=== PATIENT | male | born 1975 ===

== ENCOUNTER 2021-12-27 12:40 | Outpatient (CLI) | payer OTHER ==
--- NOTE | 2021-12-27 15:34 | MRI Report ---
PROCEDURE: Knee RT W/O INDICATIONS: KNEE PAIN TECHNIQUE: Noncontrast sagittal PD fast spin echo and T2 fast spin echo with fat saturation, sagittal 3-D gradie nt sequence with fat saturation; coronal T1 spin echo and PD fast spin echo with fat saturation, and axial PD fast spin echo with fat saturation through the knee. COMPARISON: None. FINDINGS: Image quality: Excellent. Menisci: The medial and lateral menisci demonstrate normal morphology and internal signal. The meni scal root ligaments appear intact. Cruciate ligaments: Sprain/low-grade intrasubstance partial thickness tear involving anterior cruciat e ligament is seen. No ACL rupture. PCL is intact. Medial structures: The medial collateral ligament appears intact. The posterior oblique ligament, s emimembranosus tendon insertions, and oblique popliteal ligament, and meniscocapsular junction appear intact. Visualized portions of the pes anserinus tendons appear normal. No abnormal bursal fluid. Lateral structures: The lateral collateral ligament, long and short heads of the biceps femoris tend on appear intact. The popliteus tendon appears normal; the popliteofibular ligament appears intact. Iliotibial band appears normal. Anterior structures: The quadriceps and patellar tendons appear intact. Patellar alignment is thanh l. No femoral trochlear dysplasia or ventral trochlear prominence. No edema in the infrapatellar fa t pad. 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 No acute fra cture or dislocation. Cartilages in medial and lateral femoral tibial compartment are intact. Joint space: There is small amount of joint fluid. No Mcdonald's cyst. Normal appearing synovial plica e are incidentally noted. IMPRESSION: 1. Sprain/low-grade partial thickness tear involving anterior cruciate ligament. No ACL rupture. PCL is intact. 2. 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 No fracture or dislocation. Smal l amount of joint fluid. 3. No evidence of focal meniscal tear. Reviewed by: Tin Hernandez MD on 12/27/2021 3:33 PM PDT Approved by: Tin Hernandez MD on 12/27/2021 3:33 PM PDT Station ID: [id number]
== END 2021-12-27 12:41 | disposition home or self-care (01) ==
LOC: DI 12:40
PROVIDERS: ATTEND Physician Assistant
DX: S83.511A Sprain of anterior cruciate ligament of right knee, initial encounter (principal); M17.11 Unilateral primary osteoarthritis, right knee; M89.9 Disorder of bone, unspecified; M22.41 Chondromalacia patellae, right knee